=== PATIENT | female | born 1990 | race Caucasian/White ===

== ENCOUNTER 2017-11-28 13:34 | Emergency (ER) | payer OTHER ==
[2017-11-28 15:36] VITALS: BMI 44.9
[2017-11-28 16:24] LABS: SQUAMOUS EPITHIAL 5 /hpf (0-5); URINE BACTERIA RARE (<OCC); URINE BILIRUBIN NEGATIVE (NEGATIVE); URINE BLOOD NEGATIVE (NEGATIVE); URINE CLARITY Clear (Clear); URINE COLOR Yellow (YELLOW); URINE GLUCOSE (UA) 1+ mg/dL (Normal); URINE HYALINE CAST 0-2 /lpf (0-2); URINE LEUKOCYTE ESTERASE 1+ Leu/uL (Negative); URINE PROTEIN NEGATIVE (NEGATIVE); URINE UROBILINOGEN NORMAL mg/dL (0.2-1.0)
[2017-11-28 20:51] VITALS: BP 129/73; PULSE 100; RESP 20
--- NOTE | 2017-12-09 17:02 | OBHP ---
Datetime: 11/28/2017 15:34 IP Adm Impression: , intrauterine ; No Active Labor; Intact Membranes IP Admit Plan: Observation/Evaluation Admit Comment, IP Provider: 27 yo female with an IUP at 36 weeks and not in labor Adequate FM, No LOF or vaginal bleeding C/O of urinary symptoms of Dysuria and increased frequency of urination for the past few days Few irregular cx's noted but not painful UA with + indications for UTI and symptomatic Rx for Macrobid given to take 100 mg po BID x 7 days Counseled to increase po water intake D/C home in S_S condition Pelvic Type - PN: Adequate Extremities - PN: Normal Abdomen - PN: Normal Back - PN: Normal Breast - PN: Not Done Lungs - PN: Normal Heart - PN: Normal Thyroid - PN: Normal Neurologic - PN: Normal HEENT - PN: Normal General - PN: Normal Presentation-Admit: Vertex FHR - Baseline A Provider: 150 Membranes, Provider: Intact Contraction Comments Provider: Irregular Comments, ACOG Physical Exam: FH c/w 36 weeks Gestation - Est Wks by US: 36.0 IP Hx Assessment: Records reviewed EGA AdmitDate IP: 36.0 IP Chief Complaint: Signs/symptoms UTI; evaluation NICHD Variability Prov Fetus A: Moderate 6-25bpm NICHD Accel Fetus A IP Provider: 10X10 FHR Category Provider Fetus A: Category I NICHD Decel Fetus A IP Provider: None Dilatation, Provider: 0 Effacement, Provider: 0 Station, Provider: -3 Genitourinary Exam: Normal DTRs - PN: Normal
== END 2017-11-28 16:45 | disposition home or self-care (01) ==
LOC: C.EROB 13:34
DX: O23.43 Unspecified infection of urinary tract in pregnancy, third trimester (principal); Z3A.36 36 weeks gestation of pregnancy

== ENCOUNTER 2017-12-13 02:15 | Emergency (ER) | payer OTHER ==
[2017-12-13 03:17] VITALS: BMI 38.2
[2017-12-13] MEDS ORDERED: Lactated Ringer's 1,000 ML IV ONE (03:17)
[2017-12-13 08:47] VITALS: BP 119/74; PULSE 89; TEMP 99
== END 2017-12-13 04:40 | disposition home or self-care (01) ==
LOC: C.EROB 02:15
DX: O47.1 False labor at or after 37 completed weeks of gestation (principal); Z3A.38 38 weeks gestation of pregnancy
CPT/HCPCS: 99283; J7120